=== PATIENT | male | born 1935 | race American Indian/Alaskan Native ===

== ENCOUNTER 2021-04-28 08:32 | Day surgery (SDC) | payer MEDICARE, OTHER ==
[~2021-04-28 08:32] MED LIST: SODIUM CHLORIDE 0.9% 1000 ML 1,000 ML IV SCH
[2021-04-28] MEDS ORDERED: propofoL 200 MG/20 ML VIAL IV ONE ×2 (11:57→12:22)
--- NOTE | 2021-04-28 12:52 | Operative Report ---
DATE OF SURGERY: 04/28/2021 PROCEDURE: Colonoscopy with cold biopsy. INDICATIONS: This is an 85-year-old -[place] gentleman in otherwise good health. He has an underlying history of hypertension, prior history of colon polyp. Last colonoscopy was several years ago. Colonoscopy was done to make sure there was not any recurrence of any polyps. DESCRIPTION OF PROCEDURE: Procedure was done after getting informed consent with MAC anesthesia. Initial rectal examination was unremarkable. The instrument was passed through the rectum onto the cecum, which was identified with ileocecal valve and appendiceal orifice. The cecum was also visualized on the retroverted fashion. No additional pathology was noted. The scope was withdrawn to the hepatic flexure and reintroduced. The patient had extensive diverticula throughout the colon, some of them were very deep. There were diverticula noted in the proximal colon involving the cecum and ascending colon as well as the transverse colon. In the mid transverse colon, there was a small 6-7 mm polyp noted, possibly hyperplastic which was removed by cold biopsy. The descending colon and sigmoid likewise showed moderate diverticular disease, some of which were deep and the rectum showed some minor internal hemorrhoid. There was minimal bleeding from the polypectomy, biopsy sites. No complications associated with the procedure. ASSESSMENT: Colon polyp screening, history of colon polyps, solitary small transverse colon polyp noted that was removed by cold biopsy, extensive deep diverticular disease, incidental transverse colon lipoma was also noted but not biopsied, mild to moderate internal hemorrhoid. PLAN: To encourage the patient to take fiber supplements, avoid aspirin and aspirin-related products for the next few days and follow up in the office in 1-2 weeks' time. Procedure was done in the GI lab with assistance of the GI lab team, which included the GI nurse, the brewing technician and with assistance of Anesthesia. TID: [id number] RECEIPT: [id number] LIZET/TEETEE
--- NOTE | 2021-04-28 13:06 | Anesthesia Day of Surgery ---
Anesthesia Day of Surgery - Day of Surgery Patient Examined: Yes Patient H&P Reviewed: Yes Patient is NPO: Yes
--- NOTE | 2021-04-28 13:06 | Anesthesia Consultation ---
Anesthesia Consult and Med Hx Date of service: 04/28/21 - Airway Anesthetic Teeth Evaluation: Dentures (beth upper and lower) ROM Head & Neck: Adequate Mental/Hyoid Distance: Adequate Mallampati Class: Class III Intubation Access Assessment: Possibly Difficult - Pre-Operative Health Status ASA Pre-Surgery Classification: ASA2 Proposed Anesthetic Plan: MAC - Pulmonary Hx Smoking: No (former smoker quit 1983) Hx Respiratory Symptoms: No - Cardiovascular System Hx Hypertension: Yes (took antihypertensives this morning) Hx Heart Attack/AMI: No Hx Percutaneous Transluminal Coronary Angioplasty (PTCA): No Hx Cardia Arrhythmia: No - Central Nervous System CVA: No - Endocrine Hx Renal Disease: No Hx Liver Disease: No Hx Insulin Dependent Diabetes: No Hx Non-Insulin Dependent Diabetes: No Hx Thyroid Disease: No - Other Systems Hx Obesity: No - Additional Comments Anesthesia Medical History Comments: No hx anesthetic complications.
--- NOTE | 2021-04-28 13:43 | Post Anesthesia Evaluation ---
- Post Anesthesia Evaluation Patient Participated: Yes Airway Patent: Yes Stable Respiratory Function: Yes Nausea/Vomiting: No Temp > 96.8F: Yes Pain Manageable: Yes Adequeate Hydration: Yes Anesthesia Complications: No
[2021-04-28 19:47] VITALS: BP 109/63
== END 2021-04-28 08:33 | disposition home or self-care (01) ==
LOC: GIO 08:32
DX: Z12.11 Encounter for screening for malignant neoplasm of colon (principal); K57.30 Diverticulosis of large intestine without perforation or abscess without bleeding; K63.89 Other specified diseases of intestine; K63.5 Polyp of colon; I10 Essential (primary) hypertension; M19.90 Unspecified osteoarthritis, unspecified site; Z79.899 Other long term (current) drug therapy
CPT/HCPCS: 45380; 88305; J2704; J7030